=== PATIENT | female | born 1990 | race African-American/Black ===

== ENCOUNTER 2017-03-22 09:34 | Emergency (ER) | payer OTHER ==
[2017-03-22 09:37] VITALS: BP 112/68; PULSE 74; TEMP 97.8; BMI 25.8
--- NOTE | 2017-03-22 10:35 | PDOC ---
History of Present Illness - General Chief Complaint: Ear Problem Stated Complaint: EAR PROBLEM Time Seen by Provider: 03/22/17 10:13 History Source: Patient Exam Limitations: No Limitations - History of Present Illness Initial Comments: 03/22/17 10:32 c/o clogged left ear Past History - Past Medical History Allergies/Adverse Reactions: Allergies Allergy/AdvReac Type Severity Reaction Status Date / Time No Known Allergies Allergy Verified 03/22/17 09:37 Home Medications: Ambulatory Orders NK [No Known Home Medication] 03/22/17 Other medical history: denies - Suicide/Smoking/Psychosocial Hx Smoking History: Never smoked Information on smoking cessation initiated: No Hx Alcohol Use: No Drug/Substance Use Hx: No Substance Use Type: None *Physical Exam - Vital Signs Last Vital Signs Temp Pulse Resp BP Pulse Ox 97.8 F 74 17 112/68 100 03/22/17 09:36 03/22/17 09:36 03/22/17 09:36 03/22/17 09:36 03/22/17 09:36 - Physical Exam General Appearance: Yes: Nourished, Appropriately Dressed HEENT: positive: EOMI, KIANNA, Other (cerumen impaction left ear ) Neck: positive: Supple Respiratory/Chest: positive: Lungs Clear, Normal Breath Sounds Cardiovascular: positive: Regular Rhythm, Regular Rate Extremity: positive: Normal Capillary Refill, Normal Inspection, Normal Range of Motion Integumentary: positive: Normal Color, Dry, Warm Neurologic: positive: Fully Oriented, Alert, Normal Mood/Affect, Normal Response , Motor Strength 5/5 Procedures - Additional Procedures Progress: 03/22/17 10:32 ear irrigated with warm water and peroxide large amount of was returned pt tolerated well Medical Decision Making - Medical Decision Making 03/22/17 10:33 cc: left ear dullness, clogged will irrigate cerumen non toxic neg fever or sore throat ear re-examined after the was was irrigated out and the TM is intact no bulging or redness *DC/Admit/Observation/Transfer Diagnosis at time of Disposition: Excessive cerumen in left ear canal - Discharge Dispostion Disposition: HOME Condition at time of disposition: Improved - Referrals Referrals: Chris Flores MD [Staff Physician] - - Patient Instructions Additional Instructions: follow with the ear doctors if symptoms continue or worsen
== END 2017-03-22 10:43 | disposition home or self-care (01) ==
LOC: JERFT 09:34
PROC: 3E1B78Z Irrigation of Ear using Irrigating Substance, Via Natural or Artificial Opening (ICD-10-PCS; principal; 2017-03-22)
DX: H61.22 Impacted cerumen, left ear (principal)
CPT/HCPCS: 69209; 99281-25

== ENCOUNTER 2020-02-24 20:30 | Emergency (ER) | payer OTHER ==
[2020-02-24 20:34] VITALS: BP 113/74; PULSE 74; TEMP 98; BMI 25.0
--- OUTSIDE RECORDS SUMMARY | 2020-02-24 20:42 | XMS ---
:1990 Author Organization [facility] Support Name Relationship Address Phone ALBERTO Willett [address] [address] VALERIA JOEL MOTHER [address] [place] [address] Re-disclosure Warning The records that you are about to access may contain information from federally- assisted alcohol or drug abuse programs. If such information is present, then the following federally mandated warning applies: This information has been disclosed to you from records protected by federal confidentiality rules (42 CFR part 2). The federal rules prohibit you from making any further disclosure of this information unless further disclosure is expressly permitted by the written consent of the person to whom it pertains or as otherwise permitted by 42 CFR part 2. A general authorization for the release of medical or other information is NOT sufficient for this purpose. The Federal rules restrict any use of the information to criminally investigate or prosecute any alcohol or drug abuse patient.The records that you are about to access may contain highly sensitive health information, the redisclosure of which is protected by Article 27-F of the [facility] Public Health law. If you continue you may haveaccess to information: Regarding HIV / AIDS; Provided by facilities licensed or operated by the [facility] Office of Mental Health; or Provided by the [facility] Office for People With Developmental Disabilities. If such information is present, then the following [facility] mandated warning applies: This information has been disclosed to you from confidential records which are protected by state law. State law prohibits you from making any further disclosure of this information without the specific written consent of the person to whom it pertains, or as otherwise permitted by law. Any unauthorized further disclosure in violation of state law may result in a fine or mcfp sentence or both. A general authorization for the release of medical or other information is NOT sufficient authorization for further disclosure. Insurance Providers Payer name Policy type Policy ID Covered Covered libertarian's Policy P lynsey / Coverage libertarian ID relationship to Kumari Inf ormation type kumari MICHELLE [id number] [facility]
--- NOTE | 2020-02-24 21:03 | PDOC ---
History of Present Illness - General Chief Complaint: Vaginal Bleeding Stated Complaint: HAEMORRHAGE/VAGINA Time Seen by Provider: 02/24/20 20:56 History Source: Patient Exam Limitations: No Limitations - History of Present Illness Initial Comments: 02/24/20 21:02 Kia Baer is an otherwise healthy 30F LMP 01/07/20 @~6 weeks presenting with vaginal bleeding after intercourse. Patient discovered yesterday. Periods monthly but irregular, checked because she and partner have been trying to conceive for a while. once before with elective , no other [employer] or STI history. This morning at 1AM was having vaginal sex, after had bleeding <1 pad. Denies urinary sx, abd pain, C/D, fevers, discharge. All day has been having mild spotting. 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 No allergies. No PMH/PSH. No meds. Denies tobacco/drugs/alcohol. Past History - Medical History Allergies/Adverse Reactions: Allergies Allergy/AdvReac Type Severity Reaction Status Date / Time No Known Allergies Allergy Verified 02/24/20 20:34 Home Medications: Ambulatory Orders NK [No Known Home Medication] 03/22/17 COPD: No - Reproductive History Is Patient Now?: Yes - Psycho-Social/Smoking History Smoking History: Never smoked - Substance Abuse Hx (Audit-C & DAST Scrn) How often the patient has a drink containing alcohol: Never Score: In Men: 4 or > Positive; In Women: 3 or > Positive: 0 Screen Result (Pos requires Nsg. Audit-10AR): Negative In the last yr the pt used illegal drug/Rx for NonMed reason: No Score: Yes response is considered Positive: 0 Screen Result (Positive result requires Nsg. DAST-10): Negative Review of Systems - Review of Systems Constitutional: No: Symptoms Reported HEENTM: No: Symptoms Reported Respiratory: No: Symptoms reported Cardiac (ROS): No: Symptoms Reported ABD/GI: No: Symptoms Reported : Yes: Other (vaginal bleeding) Musculoskeletal: No: Symptoms Reported Integumentary: No: Symptoms Reported Neurological: No: Symptoms reported Endocrine: No: Symptoms Reported Hematologic/Lymphatic: No: Symptoms Reported All Other Systems: Reviewed and Negative *Physical Exam - Vital Signs Last Vital Signs Temp Pulse Resp BP Pulse Ox 98.0 F 74 18 113/74 100 02/24/20 20:32 02/24/20 20:32 02/24/20 20:32 02/24/20 20:32 02/24/20 20:32 - Physical Exam General Appearance: Yes: Nourished, Appropriately Dressed, Other (resting in bed in good spirits). No: Apparent Distress HEENT: positive: EOMI, KIANNA, Pharynx Normal, Hearing Grossly Normal. negative: Scleral Icterus (R), Scleral Icterus (L), Pharyngeal Erythema, Tonsillar Exudate, Tonsillar Erythema Neck: positive: Normal Thyroid, Supple. negative: Tender, Rigid, Lymphadenopathy (R), Lymphadenopathy (L) Respiratory/Chest: positive: Lungs Clear, Normal Breath Sounds. negative: Chest Tender, Respiratory Distress, Accessory Muscle Use, Crackles, Rales, Rhonchi, Stridor, Wheezing Cardiovascular: positive: Regular Rhythm, Regular Rate. negative: Murmur Female Pelvic Exam: positive: normal external exam, cervical os closed, normal adnexa, normal size ovaries. negative: adnexal tenderness, vaginal bleeding Gastrointestinal/Abdominal: positive: Normal Bowel Sounds, Flat, Soft, Other (unable to palpate uterine fundus consistent with gestational age). negative: Tender, Pulsatile Mass, Distended, Guarding, Rebound Musculoskeletal: positive: Normal Inspection. negative: CVA Tenderness, Decreased Range of Motion Extremity: positive: Normal Capillary Refill, Normal Inspection, Normal Range of Motion, Pelvis Stable, Other (gait normal). negative: Tender, Pedal Edema, Swelling, Calf Tenderness Integumentary: positive: Normal Color, Dry, Warm Neurologic: positive: Fully Oriented, Alert, Normal Mood/Affect, Normal Response ED Treatment Course - LABORATORY CBC & Chemistry Diagram: 02/24/20 22:22 02/24/20 22:22 Medical Decision Making - Medical Decision Making 02/24/20 21:02 Patient has mild vaginal bleeding in the setting of recent vaginal intercourse, no symptomatic anemia, VSS. Pelvic exam os closed, no active bleeding, mild serosang discharge, no clots. Ordering CBC/CMP/coags/T&S/beta with UA/UC/urine hCG. Getting TVUS for evaluation of IUP. 02/24/20 22:56 Labs notable for: - UA clean - Hgb 10.6, MCV <80, microcytic but asymptomatic - Coags QNS 02/24/20 23:34 TVUS: single live IUP with FHR 100, EGA 6 weeks 0 days Non-specific round focus in L ovarian parenchyma, possible corpus luteum Trace fluid in pelvic cul-de-sac, likely physiologic Pending T&S and Beta quant. 02/24/20 23:51 Blood type O+, no RhoGAM needed Viable FHR and IUP, but having bleeding, possible miscarriage vs. intercourse- related cervical trauma. Stable for discharge home with [employer] FEEDER f/u. Discharge - Discharge Information Problems reviewed: Yes Clinical Impression/Diagnosis: Vaginal bleeding affecting early Condition: Stable - Follow up/Referral Referrals: Uday Ribeiro MD [Staff Physician] - - Patient Discharge Instructions Patient Printed Discharge Instructions: Threatened Miscarriage, Early Bleeding Additional Instructions: Today you were evaluated for vaginal bleeding during . Your blood works are normal. Your ultrasound shows that you have a healthy fetus at ~6 weeks with a good heart rate. You could have a miscarriage in the future, but so far everything is okay. You do not have a urinary tract infection. Your blood type is O+. At home, please follow-up with an [employer]ING IN [employer] FEEDER regarding this bleeding, and a referral has been given. Refrain from sexual activity for the next week to allow things to heal. If you experience worsening bleeding greater than 3 pads per hour, abdominal pain, shortness of breath, or any other new or concerning symptoms, please return to the emergency room. - Post Discharge Activity
--- NOTE | 2020-02-24 21:36 | PDOC ---
Documentation entered by Kendall Gonzalez SCRIBE, acting as scribe for Ragini Morelos MD. Ragini Morelos MD: This documentation has been prepared by the Sherif guerrero Angel, SCRIBE, under my direction and personally reviewed by me in its entirety. I confirm that the documentation accurately reflects all work, treatment, procedures, and medical decision making performed by me. Attending Attestation - Resident Resident Name: Mendez Davis - ED Attending Attestation I have performed the following: I have examined & evaluated the patient, The case was reviewed & discussed with the resident, I agree w/resident's findings & plan, Exceptions are as noted - HPI HPI: 02/24/20 21:30 This 29 yo female p/w vaginal spotting and her LMP was December. She has been trying to conceive . - Physicial Exam PE: 02/24/20 21:31 29 yo female states she is and has had vaginal spotting head ncat neck supple lungs cta b/l cvs [id number] abdomen nontender extremities no edema skin warm and dry neuro axox3 - Medical Decision Making 02/24/20 21:35 pelvic US,t&S 02/24/20 23:19 UA negative 02/24/20 23:22 transvaginal US: SL IUP 6 weeks o days heart [id number] 02/24/20 23:48 type and screen O POSITIVE 02/24/20 23:49 imp threatened AB plan follow up with tape stringer Discharge - Discharge Information Problems reviewed: Yes Clinical Impression/Diagnosis: Vaginal bleeding affecting early Condition: Stable - Follow up/Referral Referrals: Uday Ribeiro MD [Staff Physician] - - Patient Discharge Instructions Patient Printed Discharge Instructions: Threatened Miscarriage, Early Bleeding Additional Instructions: Today you were evaluated for vaginal bleeding during . Your blood works are normal. Your ultrasound shows that you have a healthy fetus at ~6 weeks with a good heart rate. You could have a miscarriage in the future, but so far everything is okay. You do not have a urinary tract infection. Your blood type is O+. At home, please follow-up with an SR. DIRECTOR regarding this bleeding, and a referral has been given. Refrain from sexual activity for the next week to allow things to heal. If you experience worsening bleeding greater than 3 pads per hour, abdominal pain, shortness of breath, or any other new or concerning symptoms, please return to the emergency room. - Post Discharge Activity
[2020-02-24 22:34] LABS: PH,URINE 6.5 (5.0-8.0); URINE APPEARANCE CLEAR; URINE BILIRUBIN NEGATIVE (NEGATIVE); URINE COLOR YELLOW; URINE GLUCOSE (UA) NEGATIVE (NEGATIVE); URINE KETONE NEGATIVE (NEGATIVE); URINE LEUK ESTERASE NEGATIVE (NEGATIVE); URINE NITRITE NEGATIVE (NEGATIVE); URINE PROTEIN NEGATIVE (NEGATIVE)
[2020-02-24 22:47] LABS: BASO % 0.4 % (0-2.0); HEMATOCRIT 32.4 % (32.4-45.2); LYMPH % 35.4 % (8-40); MCH 24.1 pg (25.7-33.7); MEAN CELL VOLUME 77.7 fl (80-96); MEAN PLT VOLUME 8.7 fl (7.5-11.1); MONO % 9.1 % (3.8-10.2); NEUT % 53.1 % (42.8-82.8); PLATELET COUNT 258 K/MM3 (134-434); RBC 4.17 M/mm3 (3.60-5.2); WHITE BLOOD COUNT 7.6 K/mm3 (4.0-10.0)
[2020-02-24 23:28] LABS: BILIRUBIN,TOTAL 0.3 mg/dL (0.2-1); BLOOD UREA NITROGEN 16.5 mg/dL (7-18); CREATININE 0.8 mg/dL (0.55-1.3); POTASSIUM 3.8 mmol/L (3.5-5.1); TOT PROT 7.5 g/dl (6.4-8.2)
[2020-02-24 23:55] LABS: CALCIUM 9.1 mg/dL (8.5-10.1)
== END 2020-02-24 23:55 | disposition home or self-care (01) ==
LOC: JER 20:30
DX: O26.851 Spotting complicating pregnancy, first trimester (principal)
CPT/HCPCS: 76817-TC; 80053; 81003; 84702; 84703; 85025; 86850; 86900; 86901; 87086; 99284-25

== ENCOUNTER 2020-02-28 13:47 | Emergency (ER) | payer OTHER ==
[2020-02-28 13:54] VITALS: TEMP 98.1; BMI 25.0
--- NOTE | 2020-02-28 15:15 | PDOC ---
History of Present Illness - General History Source: Patient Exam Limitations: No Limitations - History of Present Illness Initial Comments: 02/28/20 15:12 Patient is a 29-year-old female , with an elective termination, who presents to the ED with return for vaginal bleeding and . She was seen 5 days ago in the emergency department with vaginal bleeding and was found to have a 6 weeks IUP gestation. The patient states her bleeding resolved and she began to bleed again today. She called several [facility] [facility] [employer] and was told she can be seen in March but there were no sooner appointments. She does admit to having a little bit of cramping earlier today but that has resolved. She denies any pain at this time. She states she noticed some blood in the toilet water and some when she wipes. She denies any past medical history or allergies to medications. <Shannan Gregory - Last Filed: 02/28/20 15:43> <Sarai Alfonso - Last Filed: 03/08/20 13:55> - General Chief Complaint: Vaginal Bleeding Stated Complaint: VAGINAL BLEEDING (7 WKS PREG) Time Seen by Provider: 02/28/20 14:01 Past History - Medical History COPD: No - Reproductive History Is Patient Now?: Yes - Psycho-Social/Smoking History Smoking History: Never smoked Have you smoked in the past 12 months: No - Substance Abuse Hx (Audit-C & DAST Scrn) How often the patient has a drink containing alcohol: Never Score: In Men: 4 or > Positive; In Women: 3 or > Positive: 0 Screen Result (Pos requires Nsg. Audit-10AR): Negative In the last yr the pt used illegal drug/Rx for NonMed reason: No Score: Yes response is considered Positive: 0 Screen Result (Positive result requires Nsg. DAST-10): Negative <Shannan Gregory - Last Filed: 02/28/20 15:43> <Sarai Alfonso - Last Filed: 03/08/20 13:55> - Medical History Allergies/Adverse Reactions: Allergies Allergy/AdvReac Type Severity Reaction Status Date / Time No Known Allergies Allergy Verified 02/28/20 13:49 Home Medications: Ambulatory Orders NK [No Known Home Medication] 03/22/17 Review of Systems - Review of Systems Comments:: 02/28/20 15:14 - Review of Systems Able to Perform ROS?: Yes Constitutional: No: Fever, Chills, Loss of Appetite, Night Sweats, Weakness HEENTM: No: Eye Pain, Vision changes, Ear Pain, Throat Pain, Throat Swelling, Mouth Pain, Difficulty Swallowing Respiratory: No: Cough, Shortness of Breath, Wheezing, Sputum Production Cardiac (ROS): No: Chest Pain, Chest Tightness, Palpitations, Irregular Heart Beat, Edema ABD/GI: No: Nausea, Vomiting, Abdominal Pain, Diarrhea : No Dysuria, No Hematuria, No Frequency, No Urgency, positive: Vaginal bleeding in Musculoskeletal: No: Muscle Pain, Back Pain, Joint Pain, Muscle Weakness, Neck Pain Integumentary: No: Lesions, Rash Neurological: No: Headache, Numbness, Tingling, Weakness, Speech Difficulties <Shannan Gregory - Last Filed: 02/28/20 15:43> *Physical Exam - Vital Signs Last Vital Signs Temp Pulse Resp BP Pulse Ox 98.1 F 87 16 113/72 100 02/28/20 13:50 02/28/20 13:50 02/28/20 13:50 02/28/20 13:50 02/28/20 13:50 - Physical Exam 02/28/20 15:14 - Physical Exam General Appearance: Nourished, Appropriately Dressed, No Distress HEENT: EOMI, Normal Voice, Hearing Grossly Normal Neck: Supple, No Lymphadenopathy (R), No Lymphadenopathy (L), No Rigidity, No Decreased range of motion Respiratory/Chest: Lungs Clear, Normal Breath Sounds. No Respiratory Distress, No Accessory Muscle Use Cardiovascular: Regular Rhythm, Regular Rate, S1, S2 Gastrointestinal/Abdominal: Normal Bowel Sounds, Soft. 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 Osseous closed. No CMT. Uterus nontender and nonpalpable. Adnexa nontender nonpalpable. No masses or lesions appreciated. Musculoskeletal: Normal Inspection. No Decreased Range of Motion Extremity: Normal Capillary Refill, Normal Inspection Integumentary: Normal Color, Dry. No Rash Neurologic: drosser II-XII NML intact, Fully Oriented, Alert, Normal Mood/Affect, Normal Response <Shannan Gregory D - Last Filed: 02/28/20 15:43> - Vital Signs Last Vital Signs Temp Pulse Resp BP Pulse Ox 98.1 F 79 16 124/68 100 02/28/20 13:50 02/28/20 15:50 02/28/20 15:50 02/28/20 15:50 02/28/20 15:50 <Sarai Alfonso - Last Filed: 03/08/20 13:55> ED Treatment Course - ADDITIONAL ORDERS Additional order review: 02/28/20 15:16 Laboratory Tests 02/24/20 22:22 Blood Type O POSITIVE Antibody Screen Negative 02/28/20 15:44 Laboratory Tests 02/28/20 14:20 Beta HCG, Quant 40108.3 - RADIOLOGY Radiology Studies Ordered: Category Date Time Status TRANSVAGINAL US PREG [US] Stat Ultrasound 02/28/20 14:16 Ordered <Shannan Gregory - Last Filed: 02/28/20 15:43> Medical Decision Making - Medical Decision Making 02/28/20 15:15 Assessment: Patient is a 29-year-old female with vaginal bleeding and that started today. She is roughly 7 weeks gestation. Plan: -Beta hCG ordered -Transvaginal ultrasound ordered -Patient is O+, RhoGam not needed. Reviewed from blood work from 02/23 -Will reassess 02/28/20 15:44 The patient has been made aware that her ultrasound shows a single IUP at roughly 6 weeks 3 days gestation. Her beta-hCG is going up appropriately. She should follow-up with [employer] [employer], referral given, for further evaluation and treatme nt. She understands and agrees with this treatment plan and she is stable for discharge. <Shannan Gregory - Last Filed: 02/28/20 15:43> Discharge - Discharge Information Problems reviewed: Yes <Shannan Gregory - Last Filed: 02/28/20 15:43> - Discharge Information Problems reviewed: Yes <Sarai Alfonso - Last Filed: 03/08/20 13:55> - Discharge Information Clinical Impression/Diagnosis: Vaginal bleeding during Condition: Stable Disposition: HOME - Follow up/Referral Referrals: Van Melara MD [Staff Physician] - Ariane Jolly MD [Staff Physician] - - Patient Discharge Instructions Patient Printed Discharge Instructions: DI for Vaginal Bleeding During Additional Instructions: Avoid any strenuous activity or heavy lifting. Avoid any sexual activity or anything in the vagina until you are cleared by [employer] [employer]. Get plenty of rest and drink plenty of fluids. Be sure to follow-up with [employer] [employer], 2 separate referrals given, for further evaluation and treatment. - Post Discharge Activity Work/Back to School Note: Back to Work
[2020-02-28 15:51] VITALS: BP 124/68; PULSE 79
== END 2020-02-28 15:50 | disposition home or self-care (01) ==
LOC: JER 13:47
DX: O26.851 Spotting complicating pregnancy, first trimester (principal)
CPT/HCPCS: 36415; 76817-TC; 84702; 99284-25

== ENCOUNTER 2023-11-19 15:15 | Emergency (ER) | payer OTHER ==
[2023-11-19 15:26] VITALS: TEMP 98.3; BMI 28.1
[2023-11-19 16:49] LABS: BASO % 0.9 % (0-2.0); EOS % 0.6 % (0-4.5); HEMATOCRIT 33.5 % (32.4-45.2); HEMOGLOBIN 10.6 GM/dL (10.7-15.3); LYMPH % 24.6 % (8-40); MCH 24.4 pg (25.7-33.7); MCHC 31.7 g/dl (32.0-36.0); MEAN CELL VOLUME 76.9 fl (80-96); MEAN PLT VOLUME 8.3 fl (7.5-11.1); MONO % 8.2 % (3.8-10.2); NEUT % 65.7 % (42.8-82.8); PLATELET COUNT 242 10^3/uL (134-434); RBC 4.36 M/mm3 (3.60-5.2); RDW 14.2 % (11.6-15.6)
[2023-11-19 17:06] LABS: POTASSIUM 4.1 mmol/L (3.5-5.1)
[2023-11-19 17:09] LABS: CALCIUM 9.2 mg/dL (8.5-10.1)
[2023-11-19 17:10] LABS: ALBUMIN 3.7 g/dl (3.4-5.0)
[2023-11-19 17:13] LABS: CREATININE 0.6 mg/dL (0.55-1.3)
[2023-11-19 17:14] LABS: TOT PROT 7.3 g/dl (6.4-8.2)
[2023-11-19 17:15] LABS: BILIRUBIN,TOTAL 0.5 mg/dL (0.2-1)
[2023-11-19 17:31] LABS: PH,URINE 5.5 (5.0-8.0); URINE APPEARANCE CLEAR; URINE BILIRUBIN NEGATIVE (NEGATIVE); URINE COLOR YELLOW; URINE GLUCOSE (UA) NEGATIVE (NEGATIVE); URINE KETONE 1+ (NEGATIVE); URINE LEUK ESTERASE NEGATIVE (NEGATIVE); URINE NITRITE NEGATIVE (NEGATIVE); URINE PROTEIN NEGATIVE (NEGATIVE)
[2023-11-19 19:37] VITALS: BP 113/62; PULSE 87; RESP 16
== END 2023-11-19 21:13 | disposition home or self-care (01) ==
LOC: JER 15:15
DX: O20.8 Other hemorrhage in early pregnancy (principal); O26.891 Other specified pregnancy related conditions, first trimester; R10.30 Lower abdominal pain, unspecified; Z3A.12 12 weeks gestation of pregnancy
CPT/HCPCS: 36415; 76817-TC; 80053; 81003; 84702; 85025; 86850; 86900; 86901; 87070; 87077; 87086; 87205; 87491; 87591; 87661; 99284-25